=== PATIENT | male | born 1950 ===

== ENCOUNTER 2019-03-09 11:15 | Inpatient (IN) | payer OTHER ==
[~2019-03-09] VITALS: Ht 172.7 cm; Wt 99.8 kg
[2019-03-09] MEDS ORDERED: COZAAR50 MG PO (13:03)
[2019-03-09] MEDS ORDERED: LEVOXYL25 MCG PO (13:04)
[2019-03-15] MEDS ORDERED: LEVOXYL88 MCG PO ×2 (09:35→09:36)
[2019-03-15] MEDS ORDERED: MEDROLPACK PO (15:16)
[2019-03-15] MEDS ORDERED: PERCOCET 5-3251 EACH PO (15:16)
[2019-03-15] MEDS ORDERED: COLACE100 MG PO (15:16)
[2019-03-15] MEDS ORDERED: DIAZEPAM10 MG PO (15:16)
== END 2019-03-16 11:34 | disposition home or self-care (01) | DRG 473 ==
LOC: O/R 03-15 04:20 → SURG 03-15 04:20
PROVIDERS: ADMIT Orthopaedic Surgery Orthopaedic Surgery of the Spine
PROC: 0RG2070 Fusion of 2 or more Cervical Vertebral Joints with Autologous Tissue Substitute, Anterior Approach, Anterior Column, Open Approach (ICD-10-PCS; 2019-03-15)
PROC: 0RT30ZZ Resection of Cervical Vertebral Disc, Open Approach (ICD-10-PCS; 2019-03-15)
PROC: 07DS3ZZ Extraction of Vertebral Bone Marrow, Percutaneous Approach (ICD-10-PCS; 2019-03-15)
PROC: 0RG20A0 Fusion of 2 or more Cervical Vertebral Joints with Interbody Fusion Device, Anterior Approach, Anterior Column, Open Approach (ICD-10-PCS; principal; 2019-03-15 10:00)
DX: M50.021 Cervical disc disorder at C4-C5 level with myelopathy (principal); M50.022 Cervical disc disorder at C5-C6 level with myelopathy; M50.023 Cervical disc disorder at C6-C7 level with myelopathy; E03.8 Other specified hypothyroidism; I10 Essential (primary) hypertension